=== PATIENT | male | born 1945 | race Caucasian/White ===

== ENCOUNTER → 2019-12-18 | Outpatient (CLI) | payer MEDICARE ==
--- NOTE | 2019-12-21 15:35 | REP ---
INDICATION: OCCLUSION occlusion and stenosis of bilateral carotid arteries. COMPARISON: Comparison CT angiography of the head and neck region is been retrieved dated June 09, 2009. This was done at an outside facility. TECHNIQUE: Real-time ultrasound evaluation and duplex Doppler interrogation of the extracranial carotid vasculature is performed. FINDINGS: Antegrade flow is observed in both vertebral arteries. Right carotid: The right common carotid artery shows diffuse intimal thickening but is otherwise unremarkable. There moderate mixed plaquing in the right carotid bulb. The right proximal ICA appears occluded. There are prominent collateral arterial vessels arising from the external carotid artery on the right. Velocity chart right carotid: Right CCA PSV: 101 cm/S Right ICA PSV: 0 cm/S Right ICA EDV: 0 cm/S Right ECA PSV: 80 cm/S Right ICA/CCA ratio: 0 Left carotid: The left common carotid artery shows diffuse intimal thickening but is otherwise unremarkable. There is moderate mixed plaquing in the left carotid bulb and proximal ICA on two-dimensional scanning. Color flow and spectral Doppler interrogation are unremarkable on the left. Velocity chart left carotid: Left CCA PSV: 154 cm/S Left ICA PSV: 134 cm/S Left ICA EDV: 45 cm/S Left ECA PSV: 141 cm/S Left ICA/CCA ratio: 0.9 IMPRESSION: Right ICA occlusion. Prominent ECA collaterals. Moderate distal CCA plaquing.. Less than 50% category narrowing in the left ICA by Doppler velocity criteria. <Electronically signed by Andrea Farfan > 12/21/19 [id number]
== END ==
LOC: M RAD 10:38
PROVIDERS: ATTEND Surgery Vascular Surgery
DX: I65.23 Occlusion and stenosis of bilateral carotid arteries (principal); F17.210 Nicotine dependence, cigarettes, uncomplicated